=== PATIENT | male | born 1985 | race Caucasian/White ===

== ENCOUNTER 2017-06-08 07:35 | Day surgery (SDC) | payer BC ==
[2017-06-08 08:15] VITALS: BP 141/83; BMI 28.5
--- NOTE | 2017-06-08 12:07 | NUR ---
DR SIMEON ADVISED SHORT STAY IN [facility]
--- NOTE | 2017-06-08 13:48 | OP ---
PATIENT NAME: AMY VANCE MEDICAL RECORD: [id number] LOCATION:[facility] ADMISSION DATE: SURGEON: NATE MARTÍNEZ MD DATE OF OPERATION: 06/08/2017 SURGEON: Nate Martínez MD ANESTHESIA: TIVA by Dr. Palacios. PREOPERATIVE DIAGNOSIS: Male sterilization. PROCEDURE: Vasectomy. SPECIMENS: Left vas, right vas. ESTIMATED BLOOD LOSS: None. CLINICAL HISTORY: This is a 32-year-old male, who is for 13 years and they have 3 children. The and the patient have decided for him to have a vasectomy. He is otherwise in good health. He is not allergic to any medications. 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 DESCRIPTION OF PROCEDURE: The patient was given IV sedation in supine position. He was then shaved, prepped and draped. The left vas was identified between the fingers and a Rona clamp was used to hold it in place. Towel clips were applied on either side to prevent migration of the vas. These towel clips appears through the scrotal skin. The skin overlying the vas was then infiltrated with 1% lidocaine without epinephrine. A 1 cm long incision was made using a 15 blade. Using a right angle clamp, we dissected around the vas deferens. The tunics were incised using the Bovie. The vas was isolated. It was clamped proximally and distally with mosquitos. The intervening segment was excised using a 15 blade. The ends of the vas were cauterized using cautery. The ends of the vas were tied using 2-0 Prolene. The vasal ends were then placed back into the hemiscrotum and the hemiscrotal skin was closed using simple interrupted 4-0 Vicryl. The same procedure was repeated on the right side. The intervening segment of vas, which was excised, was sent separately to pathology in formalin. The patient was awakened and brought to recovery room. TRANSINT:[id number] Voice Confirmation ID: [id number] DOCUMENT ID: [id number] NATE MARTÍNEZ MD at 1348 CC: [id number] DICTATION DATE: 06/08/17 1159 [facility] OR SKATING FRONT DESK CLERK: 06/08/17 [id number] [place] [address]
--- NOTE | 2017-06-08 15:40 | NUR ---
1400--PT VOIDS, IV DC'D. VENITA CERDA [id number]--DISCHARGE INSTRUCTIONS GIVEN, PT VERBALIZES UNDERSTANDING. PT OFF UNIT VIA WC. VENITA CERDA
== END 2017-06-08 14:25 | disposition home or self-care (01) ==
LOC: D.OPS 07:35 → D.PAN 11:00 → D.OPS 11:00 → D.PAN 12:30 → D.OPS 12:30
DX: Z30.2 Encounter for sterilization (principal); Z01.812 Encounter for preprocedural laboratory examination

== ENCOUNTER → 2017-07-10 08:25 | Outpatient (CLI) | payer BC | END | disposition home or self-care (01) | LOC: D.LAB 08:25 | DX: Z98.52 Vasectomy status (principal) ==